=== PATIENT | female | born 1995 | race Caucasian/White ===

== ENCOUNTER 2017-09-29 11:47 | Day surgery (SDC) | payer OTHER ==
[2017-09-23 09:49] LABS: HEMATOCRIT 37.3 % (36.0-47.0); HEMOGLOBIN 12.6 g/dL (12.0-15.5); MEAN CORPUSCULAR HEMOGLOBIN 28.6 pg (27.0-33.4); MEAN CORPUSCULAR HGB CONC 33.8 g/dL (32.0-36.0); MEAN CORPUSCULAR VOLUME 85 fl (80-97); PLATELET COUNT 301 10^3/uL (150-450); RED BLOOD COUNT 4.41 10^6/uL (3.72-5.28); RED CELL DISTRIBUTION WIDTH 13.7 % (11.5-14.0); WHITE BLOOD COUNT 5.9 10^3/uL (4.0-10.5)
[2017-09-23 10:10] LABS: ALANINE AMINOTRANSFERASE 40 U/L (9-52); ALBUMIN 4.5 g/dL (3.5-5.0); ALKALINE PHOSPHATASE 61 U/L (38-126); ANION GAP 16 (5-19); ASPARTATE AMINO TRANSFERASE 31 U/L (14-36); BILIRUBIN,DIRECT 0.4 mg/dL (0.0-0.4); BILIRUBIN,TOTAL 0.8 mg/dL (0.2-1.3); BLOOD UREA NITROGEN 16 mg/dL (7-20); CALCIUM 9.8 mg/dL (8.4-10.2); CARBON DIOXIDE 25 mmol/L (22-30); CHLORIDE 104 mmol/L (98-107); GLUCOSE 104 mg/dL (75-110); POTASSIUM 4.5 mmol/L (3.6-5.0); SODIUM 145.4 mmol/L (137-145); TOTAL PROTEIN 7.7 g/dL (6.3-8.2)
[~2017-09-29 11:47] MED LIST: ACETAMINOPHEN 325 MG TABLET PO PRN; BUPIVACAINE HCL 0.25 % INJ/PF (2.5 MG/1 ML) 30 ML VIAL ONE; CEFAZOLIN 2 GM/D5W RTU 2 GM/50 ML RTUPB IV PRN; LACTATED RINGERS 1000 ML IV PRN; LIDOCAINE 0.5% INJ-PF (5 MG/ML) 50 ML SDV SUBCUT PRN
[2017-09-29] MEDS ORDERED: PROPOFOL INJ 200 MG/20 ML VIAL IV ONE (13:45)
[2017-09-29] MEDS ORDERED: FENTANYL CITRATE INJ/PF 100 MCG/2 ML AMPUL ONE ×2 (13:45→15:54)
[2017-09-29] MEDS ORDERED: MIDAZOLAM 2 MG/2 ML INJ ONE (13:45)
[2017-09-29] MEDS ORDERED: ACETAMINOPHEN 1,000 MG/100 ML RTUPB IV ONE (13:46)
[2017-09-29] MEDS ORDERED: HYDROMORPHONE HCL INJ/PF 2 MG/ML AMPULE ONE (13:46)
[2017-09-29] MEDS ORDERED: MEPERIDINE HCL/PF INJ 25 MG/1 ML DISP.SYRIN IV PRN (14:31)
[2017-09-29] MEDS ORDERED: FENTANYL CITRATE INJ/PF 100 MCG/2 ML AMPUL IV PRN ×3 (14:31)
[2017-09-29] MEDS ORDERED: DIPHENHYDRAMINE HCL 50 MG/ML VIAL IV PRN (14:31)
[2017-09-29] MEDS ORDERED: PROMETHAZINE HCL INJ 25 MG/1 ML VIAL IV PRN (14:31)
[2017-09-29] MEDS ORDERED: EPHEDRINE SULFATE INJ 50 MG/1 ML AMPULE ONE (14:37)
--- NOTE | 2017-09-29 15:24 | Operative Report ---
Nonrecallable Operative Report DATE OF SURGERY: 09/29/17 PREOPERATIVE DIAGNOSIS: Symptomatic cholelithiasis POSTOPERATIVE DIAGNOSIS: Same as above OPERATION: Laparoscopic cholecystectomy SURGEON: SRINI PEARCE ANESTHESIA: GA TISSUE REMOVED OR ALTERED: Gallbladder COMPLICATIONS: None apparent ESTIMATED BLOOD LOSS: Minimal PROCEDURE: Drains/implants: None. Procedure in detail: After informed consent was obtained, the patient was laid in the supine position in the operating room. The area of the abdomen was prepped and draped in a normal sterile fashion. A 15 blade scalpel was used to create a curvilinear infraumbilical incision. This was deepened through the use of sharp and blunt dissection. The cicatrix was grasped with a Chery clamp , retracted upwards, and divided at its base. This was done due to weakness identified below the cicatrix. There was a very small defect present below the cicatrix. This was lengthened in order to insert the balloon trocar. Pneumoperitoneum was then achieved. A subxiphoid 5 mm port was placed under direct laparoscopic visualization. 2 more 5 mm ports were placed in the right upper quadrant in similar fashion. Atraumatic graspers were placed through the 5 mm ports. The gallbladder was retracted cephalad and laterally. Dissection was begun in the triangle of Calot. The cystic duct and cystic artery were fully visualized and skeletonized , seeing the liver through the triangle. Once the critical view of safety was obtained, the cystic duct and cystic artery were clipped and cut with laparoscopic instruments. The gallbladder was then removed from the liver using Bovie electrocautery. The gallbladder was placed into an Endo Catch bag and pulled out through the umbilicus. The camera was reinserted. The hilum was inspected. It was found to be free of any leakage of blood or bile. The abdomen was then copiously irrigated and suctioned until the effluent was clear. The 5 mm ports were then removed under direct laparoscopic visualization. The infraumbilical trocar was removed, and pneumoperitoneum was relieved. The infraumbilical fascia was closed using 0 Ethibond suture in [id number] fashion. The cicatrix was then tacked back to the fascia using 3-0 Vicryl suture. The overlying skin was closed using 4-0 Vicryl Rapide suture in subcuticular fashion. Dressings were fashioned, and the procedure was concluded. All sponge, instrument, and needle counts were correct 2. Condition: Stable.
--- NOTE | 2017-09-29 15:29 | Discharge Summary ---
Discharge Summary (SDC) - Discharge Final Diagnosis: Symptomatic cholelithiasis Date of Surgery: 09/29/17 Discharge Date: 09/29/17 Condition: Stable Treatment or Instructions: Hour on Tuesday. Wash incisions with soap and water. No tub baths or swimming 2 weeks. Sidney 10/325 mg p.o. every 6 hours as needed pain. Follow-up with me at [place] [facility] in 7-10 days. Referrals: SANDRA GOTTLIEB MD [Primary Care Provider] - Discharge Diet: As Tolerated Respiratory Treatments at Home: Deep Breathing/Coughing, Incentive Spirometer Discharge Activity: No Lifting Over 10 Pounds Home Care Assistance: None Needed Report the Following to Your Physician Immediately: Shortness of Breath, Nausea , Vomiting, Increase in Pain, Yellow Skin, Fever over 101 Degrees, Unusual Bleeding, Swelling, Warmth
[2017-09-29] MEDS ORDERED: HYDROCODONE/ACETAMINOPHEN 10-325 MG TABLET PO PRN (15:55)
[2017-09-29] MEDS ORDERED: SUCCINYLCHOLINE CHLORIDE INJ 200 MG/10 ML VIAL ONE (16:11)
[2017-09-29] MEDS ORDERED: NEOSTIGMINE METHYLSULFATE 10 MG/10 ML VIAL ONE (16:11)
[2017-09-29] MEDS ORDERED: ROCURONIUM BROMIDE INJ 50 MG/5 ML VIAL IV ONE (16:11)
[2017-09-29] MEDS ORDERED: LIDOCAINE 2% INJ-PF (20 MG/ML) 2 ML AMPUL ONE (16:11)
[2017-09-29] MEDS ORDERED: GLYCOPYRROLATE 1 MG/5 ML SYRINGE ONE (16:11)
[2017-09-29] MEDS ORDERED: ONDANSETRON 4 MG TAB.RAPDIS ONE (16:30)
[2017-09-29] MEDS ORDERED: KETOROLAC TROMETHAMINE INJ/PF 30 MG/1 ML SDV ONE (17:10)
[2017-09-29] MEDS ORDERED: ONDANSETRON 4 MG TAB.RAPDIS PO ONE (17:15)
[2017-09-29 19:25] VITALS: BP 133/81
== END 2017-09-29 18:20 | disposition home or self-care (01) ==
LOC: OROUT 11:47
PROVIDERS: ATTEND Surgery
DX: K80.10 Calculus of gallbladder with chronic cholecystitis without obstruction (principal); G43.909 Migraine, unspecified, not intractable, without status migrainosus; D64.9 Anemia, unspecified; N39.0 Urinary tract infection, site not specified; Z39.2 Encounter for routine postpartum follow-up; Z88.2 Allergy status to sulfonamides
CPT/HCPCS: 47562; 36415; 85027; 81025; 80076; 80048; 88304 ×2; J2250; J3490 ×4; S0119; J3010; J1885; J1170; J0330; J2704; J0690; J0131; 790